=== PATIENT | female | born 1985 | race Asian ===

== ENCOUNTER 2018-12-29 07:07 | Emergency (ER) | payer MEDICAID ==
[~2018-12-29] VITALS: Ht 99.1 cm; Wt 31.8 kg
[2018-12-29 10:08] LABS: PLATELET COUNT 392 x10^3mcL (130-400)
[2018-12-29 10:12] LABS: BASOPHIL % 0 % (0-2); RED CELL DISTRIBUTION WIDTH 15.1 % (11.5-14.5)
[2018-12-29 10:17] LABS: CALCIUM 8.1 mg/dL (8.5-10.1); CARBON DIOXIDE 22.2 mmol/L (21-32); CHLORIDE SERUM 101 mmol/L (98-107); CREATININE SERUM 0.5 mg/dL (0.6-1.0); GFR1 > 60 mL/min; GLUCOSE SERUM 166 mg/dL (74-106); SODIUM SERUM 134 mmol/L (136-145)
[2018-12-29 10:21] LABS: ALKALINE PHOSPHATASE 68 U/L (46-116); ALT/SGPT 23 U/L (14-59); AST/SGOT 44 U/L (15-37); BILIRUBIN TOTAL 0.45 mg/dL (0.20-1.00); TOTAL PROTEIN, SERUM 6.8 g/dL (6.4-8.2)
[2018-12-29 10:26] LABS: ALBUMIN 2.8 g/dL (3.4-5.0)
[2018-12-29 13:24] VITALS: BP 164/103
== END 2018-12-29 14:47 | disposition home or self-care (01) ==
LOC: ED 07:07
PROVIDERS: Specialist
DX: O26.891 Other specified pregnancy related conditions, first trimester (principal); O99.511 Diseases of the respiratory system complicating pregnancy, first trimester; S46.912A Strain of unspecified muscle, fascia and tendon at shoulder and upper arm level, left arm, initial encounter; S46.911A Strain of unspecified muscle, fascia and tendon at shoulder and upper arm level, right arm, initial encounter; S00.83XA Contusion of other part of head, initial encounter; S60.222A Contusion of left hand, initial encounter; S60.221A Contusion of right hand, initial encounter; S00.511A Abrasion of lip, initial encounter; S09.22XA Traumatic rupture of left ear drum, initial encounter; J45.909 Unspecified asthma, uncomplicated; Z88.1 Allergy status to other antibiotic agents; Y04.0XXA Assault by unarmed brawl or fight, initial encounter; Y93.89 Activity, other specified; Y92.89 Other specified places as the place of occurrence of the external cause; Y99.8 Other external cause status
CPT/HCPCS: 36415; 99406